=== PATIENT | female | born 1970 | race Caucasian/White ===

== ENCOUNTER 2020-02-15 14:54 | Outpatient (CLI) | payer OTHER, MEDICAID ==
--- NOTE | 2020-02-15 16:51 | XRAY Report ---
PROCEDURE: Elbow 3 View LT INDICATIONS: L ELBOW PX TECHNIQUE: 3 views of the elbow were acquired. COMPARISON: None FINDINGS: Bones: Mild irregularity of the proximal radius suggestive of old injury.. No suspicious bony lesion s. Soft tissues: No elbow joint effusion. No suspicious soft tissue calcifications. IMPRESSION: Mild irregularity of the proximal radius suggestive of old fracture. Reviewed by: Lizet Cordova MD on 02/15/2020 4:50 PM [facility] Approved by: Lizet Cordova MD on 02/15/2020 4:50 PM [facility] Station ID: [id number]
== END 2020-02-15 23:59 | disposition home or self-care (01) ==
LOC: DI.N 14:54
PROVIDERS: ATTEND Family Medicine
DX: M25.522 Pain in left elbow (principal)

== ENCOUNTER 2021-06-05 12:40 | Outpatient (CLI) | payer OTHER, MEDICAID ==
--- NOTE | 2021-06-06 09:03 | Mammography Report ---
BILATERAL DIGITAL SCREENING MAMMOGRAM 3D/2D: 06/05/2021 CLINICAL: Baseline exam Routine screening. No prior exams were available for comparison. The tissue of both breasts is heterogeneously dense. T his may lower the sensitivity of mammography. There is an oval equal density focal asymmetry with a circumscribed margin in the right breast at 1 o 'clock middle depth. No other significant masses, calcifications, or other findings are seen in either breast. IMPRESSION: INCOMPLETE: NEEDS ADDITIONAL IMAGING EVALUATION The oval equal density focal asymmetry in the right breast is indeterminate. Additional views with p ossible ultrasound are recommended. This exam was interpreted at Station ID: [id number]. NOTE: For mammograms, a report in lay terms will be sent to the patient. Approximately 15% of breast malignancies will not be visualized mammographically. In the management of a palpable breast mass, a negative mammogram must not discourage biopsy of a clinically suspicious lesion. Electronically Signed By: Yessi briceño/:06/05/2021 18:31:43 ACR BI-RADS Category 0: Incomplete 3340F PARENCHYMAL PATTERN: (D) - The breast(s) demonstrate(s) heterogeneously dense fibroglandular parbetty perkins. BI-RADS CATEGORY: (0) - 0 Mammo and [place] [id number] Immediate follow-up LATERALITY: (B)
== END 2021-06-05 12:41 | disposition home or self-care (01) ==
LOC: DI.N 12:40
PROVIDERS: ATTEND Internal Medicine
DX: Z12.31 Encounter for screening mammogram for malignant neoplasm of breast (principal); R92.8 Other abnormal and inconclusive findings on diagnostic imaging of breast